=== PATIENT | female | born 1980 | race Caucasian/White ===

== ENCOUNTER 2018-04-26 03:13 | Emergency (ER) | payer MEDICAID ==
[~2018-04-26] VITALS: Ht 167.6 cm; Wt 84.1 kg
[~2018-04-26 03:13] MED LIST: CLIN300C85 PO
[2018-04-26 03:49] VITALS: BP 158/113
== END 2018-04-26 03:51 | disposition home or self-care (01) ==
LOC: ER 03:13
DX: M79.671 Pain in right foot (principal); Z46.89 Encounter for fitting and adjustment of other specified devices; Z88.1 Allergy status to other antibiotic agents; Z98.890 Other specified postprocedural states
CPT/HCPCS: 29515; 99284; A6449

== ENCOUNTER 2018-06-06 22:56 | Emergency (ER) | payer MEDICAID ==
[~2018-06-06] VITALS: Ht 167.6 cm; Wt 96.0 kg
[2018-06-06 22:58] VITALS: BP 139/96
== END 2018-06-06 23:44 | disposition left against medical advice (07) ==
LOC: ER 22:56
DX: L02.31 Cutaneous abscess of buttock (principal); Z53.21 Procedure and treatment not carried out due to patient leaving prior to being seen by health care provider

== ENCOUNTER 2019-11-15 08:15 | Emergency (ER) | payer MEDICAID ==
[~2019-11-15] VITALS: Ht 167.6 cm; Wt 105.0 kg
[~2019-11-15 08:15] MED LIST changes: +CLIN-90 PO; -CLIN300C85 PO
[2019-11-15 08:33] VITALS: BP 176/98
[2019-11-15] MEDS ORDERED: proparacaine 0.5% ophthalmic drops 15ml EACHEYE ONE (09:05)
[2019-11-15] MEDS ORDERED: ERYT1OIN6 LEFTEYE (09:41)
== END 2019-11-15 10:29 | disposition home or self-care (01) ==
LOC: ER 08:15
DX: T15.92XA Foreign body on external eye, part unspecified, left eye, initial encounter (principal); Z98.890 Other specified postprocedural states; Z88.1 Allergy status to other antibiotic agents; Y92.89 Other specified places as the place of occurrence of the external cause
CPT/HCPCS: 99283

== ENCOUNTER 2021-09-13 09:59 | Emergency (ER) | payer MEDICAID ==
[~2021-09-13] VITALS: Ht 167.6 cm; Wt 90.9 kg
[~2021-09-13 09:59] MED LIST changes: -CLIN-90 PO; +CLIN-97 PO
[2021-09-13 10:04] VITALS: BP 160/96
== END 2021-09-13 10:46 | disposition home or self-care (01) ==
LOC: ER 10:00
DX: F15.90 Other stimulant use, unspecified, uncomplicated (principal); Z88.2 Allergy status to sulfonamides; Z79.899 Other long term (current) drug therapy; Z87.81 Personal history of (healed) traumatic fracture; Z98.890 Other specified postprocedural states; Z79.2 Long term (current) use of antibiotics
CPT/HCPCS: 99281